=== PATIENT | female | born 1980 | race American Indian/Alaskan Native ===

== ENCOUNTER 2016-04-12 11:39 | Emergency (ER) | payer MEDICAID ==
--- NOTE | 2016-04-12 12:27 | Emergency Department Report ---
Minor Respiratory - HPI Chief Complaint: Upper Respiratory Infection Stated Complaint: CHEST PAIN Time Seen by Provider: 04/12/16 12:21 Duration: 1 Day Pain Location: Chest Severity: moderate Minor Respiratory: Yes Rhinorrhea, Yes Able to Tolerate Fluids, Yes Cough, Yes Sick Contacts, Yes Chest Pain (w/ coughing only), Yes Shortness of Breath ( intermittent w/ coughing), No Sore Throat, No Ear Pain, No Hemoptysis, No Fever Other History: Pt reports onset of cough and congestion yesterday. Reports that when she coughs, her chest hurts. Also reports feeling SOB at times. No current pain and no pain when not coughing. Also c/o chronic issues with RLS. ED Review of Systems ROS: Stated complaint: CHEST PAIN Other details as noted in HPI Comment: All other systems reviewed and negative Constitutional: denies: chills, fever Eyes: denies: eye pain, eye discharge, vision change ENT: congestion. denies: ear pain, throat pain Respiratory: see HPI, cough, shortness of breath. denies: wheezing Cardiovascular: as per HPI, chest pain. denies: palpitations Endocrine: no symptoms reported Gastrointestinal: denies: abdominal pain, nausea, diarrhea Genitourinary: denies: urgency, dysuria, discharge Musculoskeletal: denies: back pain, joint swelling, arthralgia Skin: denies: rash, lesions Neurological: denies: headache, weakness, paresthesias Psychiatric: denies: anxiety, depression Hematological/Lymphatic: denies: easy bleeding, easy bruising ED Past Medical Hx - Past Medical History Hx Psychiatric Treatment: Yes Additional medical history: Depression, bipolar, restless leg syndrome - Surgical History Additional Surgical History: - Social History Smoking Status: Never Smoker Substance Use Type: Alcohol - Medications Home Medications: Home Medications Medication Instructions Recorded Confirmed Last Taken Type Ibuprofen [Motrin 800 MG tab] 800 mg PO Q8HR #30 tablet 10/12/14 Unknown Rx traMADol [Ultram 50 MG tab] 50 mg PO Q6HR PRN #20 tablet 10/12/14 Unknown Rx Benzonatate 200 mg PO Q8H PRN #12 capsule 04/12/16 Unknown Rx Hydroxyzine HCl 25 mg PO HS PRN #12 tablet 04/12/16 Unknown Rx Minor Respiratory Exam - Exam General: Vital signs noted. No distress. Alert and acting appropriately, though anxious. HEENT: Yes Moist Mucous Membranes, Yes Rhinorrhea, No Pharyngeal Erythema, No Pharyngeal Exudates, No Conjuctival Injection, No Frontal Tenderness, No Maxillary Tenderness Ear: Neither TM Bulge, Neither TM Erythema, Neither EAC Pain, Neither EAC Discharge Neck: Yes Supple, No Adenopathy Lungs: Yes Good Air Exchange, No Wheezes, No Ronchi, No Stridor, No Cough, No Labored Respirations, No Retractions, No Use of Accessory Muscles, No Other Abnormal Lung Sounds Heart: Yes Regular, No Murmur Abdomen: Yes Normal Bowel Sounds, No Tenderness, No Peritoneal Signs Skin: No Rash, No Edema Neurologic: Alert and oriented, no deficits. Musculoskeletal: Unremarkable. ED Course Vital Signs 04/12/16 11:49 Temperature 98.4 F Pulse Rate 116 H Respiratory 22 Rate Blood Pressure 146/102 O2 Sat by Pulse 100 Oximetry - Reevaluation(s) Reevaluation #1: 04/12/16 13:43 NAD, stable for d/c. ED Medical Decision Making - Radiology Data Radiology results: report reviewed naf - Medical Decision Making Pt with viral URI, chest wall pain with coughing only. Also is anxious with difficulty sleeping. Will RX hydroxyzine. Follow with PCP - Differential Diagnosis viral URI, PNA, chest wall pain, anxiety Critical care attestation.: If time is entered above; I have spent that time in minutes in the direct care of this critically ill patient, excluding procedure time. ED Disposition Clinical Impression: Viral URI with cough, Anxiety Disposition: DISCHARGED TO HOME OR SELFCARE Is pt being admited?: No Condition: Good Instructions: Cold Symptoms (ED) Prescriptions: Benzonatate 200 mg PO Q8H PRN #12 capsule PRN Reason: Cough Hydroxyzine HCl 25 mg PO HS PRN #12 tablet PRN Reason: Insomnia Referrals: PRIMARY CARE, [Primary Care Provider] - 2-3 Days Time of Disposition: 13:45
--- NOTE | 2016-04-12 12:48 | XRay Report ---
CHEST 2 VIEWS INDICATION: Cough, shortness of breath. COMPARISON: None similar. FINDINGS: PA and lateral chest radiographs demonstrate normal cardiomediastinal silhouette and clear lungs, given the inspiration. Intact bones. CONCLUSION: No acute disease in the chest. Thank you for the opportunity to participate in this patient's care.
[2016-04-12 13:39] VITALS: BP 150/98
== END 2016-04-12 14:10 | disposition home or self-care (01) ==
LOC: ED 11:39
DX: J06.9 Acute upper respiratory infection, unspecified (principal); F41.9 Anxiety disorder, unspecified; F31.9 Bipolar disorder, unspecified
CPT/HCPCS: 71020; 93005; 93010; 99283

== ENCOUNTER 2016-09-23 19:58 | Emergency (ER) | payer MEDICAID, OTHER ==
[2016-09-23 20:30] LABS: Urine Drugs of Abuse Note Disclamer
[2016-09-23 21:13] LABS: Bilirubin,Urine NEG (Negative); Blood,Urine MOD (Negative); Ketones,Urine NEG (Negative); Leukocyte Esterase,Urine NEG (Negative); Mucus,Urine FEW /HPF; Nitrite,Urine NEG (Negative); Urobilinogen,Urine < 2.0 mg/dL (<2.0)
[2016-09-23 21:14] LABS: RBC,Urine > 182.0 /HPF (0.0-6.0)
[2016-09-23 21:26] LABS: Hematocrit 30.9 % (30.3-42.9); Hemoglobin 9.5 gm/dl (10.1-14.3); Mean Corpuscular HGB Conc 31 % (30-34); Mean Corpuscular Volume 70 fl (79-97); Platelet Count 327 K/mm3 (140-440); White Blood Count 4.8 K/mm3 (4.5-11.0)
[2016-09-23 21:30] LABS: Mean Corpuscular Hemoglobin 22 pg (28-32); Red Cell Distribution Width 22.6 % (13.2-15.2)
--- NOTE | 2016-09-23 21:37 | Emergency Department Report ---
ED Psych HPI - General Chief Complaint: Psych Stated Complaint: POSS OVERDOSE Time Seen by Provider: 09/23/16 21:36 Source: patient Mode of arrival: Ambulatory - History of Present Illness Initial Comments: Patient is a 36-year-old female who presents with being brought in by neighbor because of combative behavior and suicidal ideation. History obtained by neighbor. Patient started screaming coworkers and was crying. She has not taken her psychiatric medications for the last couple months she states that she is hearing voices and that "I do not want to be here" patient's neighbor is concerned that she may have taken something other than alcohol. Patient has no headache, no fever, no chills, no nausea or vomiting, no chest pain, no abdominal pain. - Related Data Previous Rx's Medication Instructions Recorded Last Taken Type Ibuprofen [Motrin 800 MG tab] 800 mg PO Q8HR #30 tablet 10/12/14 Unknown Rx traMADol [Ultram 50 MG tab] 50 mg PO Q6HR PRN #20 tablet 10/12/14 Unknown Rx Benzonatate 200 mg PO Q8H PRN #12 capsule 04/12/16 Unknown Rx Hydroxyzine HCl 25 mg PO HS PRN #12 tablet 04/12/16 Unknown Rx Allergies Allergy/AdvReac Type Severity Reaction Status Date / Time No Known Allergies Allergy Unverified 07/12/13 14:13 ED Review of Systems ROS: Stated complaint: POSS OVERDOSE Other details as noted in HPI Comment: Unobtainable due to pts medical conditions (intoxication) Psychiatric: anxiety, depression, visual hallucinations, suicidal thoughts ED Past Medical Hx - Past Medical History Previous Medical History?: Yes Hx Psychiatric Treatment: Yes Additional medical history: Depression, bipolar, restless leg syndrome - Surgical History Past Surgical History?: Yes Additional Surgical History: - Social History Smoking Status: Never Smoker Substance Use Type: Alcohol - Medications Home Medications: Home Medications Medication Instructions Recorded Confirmed Last Taken Type Ibuprofen [Motrin 800 MG tab] 800 mg PO Q8HR #30 tablet 10/12/14 Unknown Rx traMADol [Ultram 50 MG tab] 50 mg PO Q6HR PRN #20 tablet 10/12/14 Unknown Rx Benzonatate 200 mg PO Q8H PRN #12 capsule 04/12/16 Unknown Rx Hydroxyzine HCl 25 mg PO HS PRN #12 tablet 04/12/16 Unknown Rx ED Physical Exam - General Limitations: No Limitations General appearance: anxious, other (tearful) - Head Head exam: Present: atraumatic, normocephalic - Eye Eye exam: Present: normal appearance, PERRL, EOMI - ENT ENT exam: Present: normal exam - Neck Neck exam: Present: normal inspection - Respiratory Respiratory exam: Present: normal lung sounds bilaterally - Cardiovascular Cardiovascular Exam: Present: regular rate - GI/Abdominal GI/Abdominal exam: Present: soft - Extremities Exam Extremities exam: Present: normal inspection, full ROM - Back Exam Back exam: Present: normal inspection - Neurological Exam Neurological exam: Present: alert, other (intoxicated) - Psychiatric Psychiatric exam: Present: agitated, anxious, suicidal ideation, other ( intoxicated) - Skin Skin exam: Present: warm ED Course Vital Signs 09/23/16 20:08 Temperature 98.1 F Pulse Rate 81 Respiratory 18 Rate Blood Pressure 126/85 O2 Sat by Pulse 100 Oximetry - Reevaluation(s) Reevaluation #1: 09/23/16 23:12 Wanted to contact mental health worker and will evaluate patient patient's blood alcohol level is 300. UDS shows no intoxication or substance. ED Medical Decision Making - Lab Data Result diagrams: 09/23/16 20:36 09/23/16 20:36 Laboratory Results - last 24 hr 09/23/16 09/23/16 09/23/16 20:15 20:15 20:36 WBC RBC Hgb Hct MCV MCH MCHC RDW Plt Count Lymph % (Auto) [place] % (Auto) Eos % (Auto) Baso % (Auto) Lymph # [place] # Eos # Baso # Add Manual Diff Total Counted Seg Neutrophils % Seg Neuts % (Manual) Band Neutrophils % Lymphocytes % (Manual) Reactive Lymphs % (Man) Monocytes % (Manual) Eosinophils % (Manual) Basophils % (Manual) Metamyelocytes % Myelocytes % Promyelocytes % Blast Cells % Nucleated RBC % Seg Neutrophils # Seg Neutrophils # Man Band Neutrophils # Lymphocytes # (Manual) Abs React Lymphs (Man) Monocytes # (Manual) Eosinophils # (Manual) Basophils # (Manual) Metamyelocytes # Myelocytes # Promyelocytes # Blast Cells # WBC Morphology Hypersegmented Neuts Hyposegmented Neuts Hypogranular Neuts Smudge Cells Toxic Granulation Toxic Vacuolation Dohle Bodies Pelger-Huet Anomaly Kylie Rods Platelet Estimate Clumped Platelets Plt Clumps, EDTA Large Platelets Giant Platelets Platelet Satelliting Plt Morphology Comment RBC Morphology Dimorphic RBCs Polychromasia Hypochromasia Poikilocytosis Anisocytosis Microcytosis Macrocytosis Spherocytes Pappenheimer Bodies Sickle Cells Target Cells Tear Drop Cells Ovalocytes Helmet Cells [place] Bodies Sarah Ann Rings Kelly Cells Bite Cells Crenated Cell Elliptocytes Acanthocytes (Spur) Rouleaux Hemoglobin C Crystals Schistocytes Malaria parasites Clifford Bodies Hem Pathologist Commnt Sodium 142 Potassium 4.2 Chloride 103.6 Carbon Dioxide 22 Anion Gap 21 BUN 6 L Creatinine 0.7 Estimated GFR > 60 BUN/Creatinine Ratio 8.57 Glucose 83 Calcium 8.8 HCG, Qual Urine Color Red Urine Turbidity Clear Urine pH 6.0 Ur Specific [place] 1.009 Urine Protein 100 mg/dl Urine Glucose (UA) 50 Urine Ketones Neg Urine Blood Mod Urine Nitrite Neg Urine Bilirubin Neg Urine Urobilinogen < 2.0 Ur Leukocyte Esterase Neg Urine WBC (Auto) 28.0 H Urine RBC (Auto) > 182.0 U Epithel Cells (Auto) 5.0 Urine Mucus Few Urine HCG, Qual Urine Opiates Screen Presumptive negative Urine Methadone Screen Presumptive negative Ur Barbiturates Screen Presumptive negative Ur Phencyclidine Scrn Presumptive negative Ur Amphetamines Screen Presumptive negative U Benzodiazepines Scrn Presumptive negative Urine Cocaine Screen Presumptive negative U Marijuana (THC) Screen Presumptive negative Drugs of Abuse Note Disclamer Plasma/Serum Alcohol 09/23/16 09/23/16 09/23/16 20:36 20:36 20:36 WBC 4.8 RBC 4.40 Hgb 9.5 L Hct 30.9 MCV 70 L MCH 22 L MCHC 31 RDW 22.6 H Plt Count 327 Lymph % (Auto) E Commerce Manager [place] % (Auto) E Commerce Manager Eos % (Auto) E Commerce Manager Baso % (Auto) E Commerce Manager Lymph # E Commerce Manager [place] # E Commerce Manager Eos # E Commerce Manager Baso # E Commerce Manager Add Manual Diff Complete Total Counted 100 Seg Neutrophils % E Commerce Manager Seg Neuts % (Manual) 31.0 L Band Neutrophils % 0 Lymphocytes % (Manual) 49.0 H Reactive Lymphs % (Man) 0 Monocytes % (Manual) 5.0 Eosinophils % (Manual) 14.0 H Basophils % (Manual) 1.0 Metamyelocytes % 0 Myelocytes % 0 Promyelocytes % 0 Blast Cells % 0 Nucleated RBC % Not Reportable Seg Neutrophils # E Commerce Manager Seg Neutrophils # Man 1.5 L Band Neutrophils # 0.0 Lymphocytes # (Manual) 2.4 Abs React Lymphs (Man) 0.0 Monocytes # (Manual) 0.2 Eosinophils # (Manual) 0.7 H Basophils # (Manual) 0.0 Metamyelocytes # 0.0 Myelocytes # 0.0 Promyelocytes # 0.0 Blast Cells # 0.0 WBC Morphology Not Reportable Hypersegmented Neuts Not Reportable Hyposegmented Neuts Not Reportable Hypogranular Neuts Not Reportable Smudge Cells Not Reportable Toxic Granulation Not Reportable Toxic Vacuolation Not Reportable Dohle Bodies Not Reportable Pelger-Huet Anomaly Not Reportable Kylie Rods Not Reportable Platelet Estimate Consistent w auto Clumped Platelets Not Reportable Plt Clumps, EDTA Not Reportable Large Platelets 1+ Giant Platelets Not Reportable Platelet Satelliting Not Reportable Plt Morphology Comment Not Reportable RBC Morphology Not Reportable Dimorphic RBCs Not Reportable Polychromasia Not Reportable Hypochromasia 2+ Poikilocytosis 1+ Anisocytosis Not Reportable Microcytosis Not Reportable Macrocytosis Not Reportable Spherocytes Not Reportable Pappenheimer Bodies Not Reportable Sickle Cells Not Reportable Target Cells Rare Tear Drop Cells Not Reportable Ovalocytes Few Helmet Cells Not Reportable [place] Bodies Not Reportable Sarah Ann Rings Not Reportable Urmila Cells Not Reportable Bite Cells Not Reportable Crenated Cell Not Reportable Elliptocytes Not Reportable Acanthocytes (Spur) Not Reportable Rouleaux Not Reportable Hemoglobin C Crystals Not Reportable Schistocytes Not Reportable Malaria parasites Not Reportable Clifford Bodies Not Reportable Hem Pathologist Commnt No Sodium Potassium Chloride Carbon Dioxide Anion Gap BUN Creatinine Estimated GFR BUN/Creatinine Ratio Glucose Calcium HCG, Qual Negative Urine Color Urine Turbidity Urine pH Ur Specific [place] Urine Protein Urine Glucose (UA) Urine Ketones Urine Blood Urine Nitrite Urine Bilirubin Urine Urobilinogen Ur Leukocyte Esterase Urine WBC (Auto) Urine RBC (Auto) U Epithel Cells (Auto) Urine Mucus Urine HCG, Qual Urine Opiates Screen Urine Methadone Screen Ur Barbiturates Screen Ur Phencyclidine Scrn Ur Amphetamines Screen U Benzodiazepines Scrn Urine Cocaine Screen U Marijuana (THC) Screen Drugs of Abuse Note Plasma/Serum Alcohol 0.31 H 09/23/16 20:41 WBC RBC Hgb Hct MCV MCH MCHC RDW Plt Count Lymph % (Auto) [place] % (Auto) Eos % (Auto) Baso % (Auto) Lymph # [place] # Eos # Baso # Add Manual Diff Total Counted Seg Neutrophils % Seg Neuts % (Manual) Band Neutrophils % Lymphocytes % (Manual) Reactive Lymphs % (Man) Monocytes % (Manual) Eosinophils % (Manual) Basophils % (Manual) Metamyelocytes % Myelocytes % Promyelocytes % Blast Cells % Nucleated RBC % Seg Neutrophils # Seg Neutrophils # Man Band Neutrophils # Lymphocytes # (Manual) Abs React Lymphs (Man) Monocytes # (Manual) Eosinophils # (Manual) Basophils # (Manual) Metamyelocytes # Myelocytes # Promyelocytes # Blast Cells # WBC Morphology Hypersegmented Neuts Hyposegmented Neuts Hypogranular Neuts Smudge Cells Toxic Granulation Toxic Vacuolation Dohle Bodies Pelger-Huet Anomaly Kylie Rods Platelet Estimate Clumped Platelets Plt Clumps, EDTA Large Platelets Giant Platelets Platelet Satelliting Plt Morphology Comment RBC Morphology Dimorphic RBCs Polychromasia Hypochromasia Poikilocytosis Anisocytosis Microcytosis Macrocytosis Spherocytes Pappenheimer Bodies Sickle Cells Target Cells Tear Drop Cells Ovalocytes Helmet Cells [place] Bodies Sarah Ann Rings Kelly Cells Bite Cells Crenated Cell Elliptocytes Acanthocytes (Spur) Rouleaux Hemoglobin C Crystals Schistocytes Malaria parasites Clifford Bodies Hem Pathologist Commnt Sodium Potassium Chloride Carbon Dioxide Anion Gap BUN Creatinine Estimated GFR BUN/Creatinine Ratio Glucose Calcium HCG, Qual Urine Color Urine Turbidity Urine pH Ur Specific [place] Urine Protein Urine Glucose (UA) Urine Ketones Urine Blood Urine Nitrite Urine Bilirubin Urine Urobilinogen Ur Leukocyte Esterase Urine WBC (Auto) Urine RBC (Auto) U Epithel Cells (Auto) Urine Mucus Urine HCG, Qual Negative Urine Opiates Screen Urine Methadone Screen Ur Barbiturates Screen Ur Phencyclidine Scrn Ur Amphetamines Screen U Benzodiazepines Scrn Urine Cocaine Screen U Marijuana (THC) Screen Drugs of Abuse Note Plasma/Serum Alcohol - Medical Decision Making Chief medical diagnosis: Substance induced mood disorder, Differential medical diagnosis: Psychosis, drug withdrawal, major depressive disorder, bipolar We'll get CBC, urine drug screen, urinalysis, CMP and psychiatric evaluation. Critical care attestation.: If time is entered above; I have spent that time in minutes in the direct care of this critically ill patient, excluding procedure time. ED Disposition Clinical Impression: Substance induced mood disorder, Suicidal ideation Alcohol intoxication Qualifiers: Complication of substance-induced condition: with unspecified complication Qualified Code(s): F10.929 - Alcohol use, unspecified with intoxication, unspecified Disposition: [id number] PSY HOSP/PSY UNIT Is pt being admited?: No Does the pt Need Aspirin: No Condition: Stable Referrals: PRIMARY CARE, [Primary Care Provider] - 3-5 Days Time of Disposition: 00:09
[2016-09-23 21:47] LABS: Anion Gap 21 mmol/L; BUN/Creatinine Ratio 8.57; Blood Urea Nitrogen 6 mg/dL (7-17); Calcium 8.8 mg/dL (8.4-10.2); Carbon Dioxide 22 mmol/L (22-30); Chloride 103.6 mmol/L (98-107); Glucose 83 mg/dL (65-100); Potassium 4.2 mmol/L (3.6-5.0); Sodium 142 mmol/L (137-145)
[2016-09-23 22:11] LABS: Blastocytes % (Manual) 0 %; Hypochromasia 2+; Large Platelets 1+
[2016-09-23 22:12] LABS: Diff Status Complete; Ovalocytes Few; Platelet Estimate Consistent w Auto; Poikilocytosis 1+; Target Cells Rare
[2016-09-24] MEDS ORDERED: ALUM-MAG HYDROX-SIMETH 200-200-20MG/5ML PO PRN (00:07)
[2016-09-24] MEDS ORDERED: TYLENOL PO PRN (00:07)
--- NOTE | 2016-09-24 13:27 | Consultation ---
History of Present Illness - Reason for Consult Consult date: 09/24/16 Reason for consult: Mental Health Evaluation Requesting physician: IVIS ACEVEDO - Chief Complaint Chief complaint: "I need sleep" - History of Present Psychiatric Illness Patient is a 36-year-old female who presents with being brought in by neighbor because of combative behavior and suicidal ideation. Today patient is cooperative, but anxious with a circumstantial thought process. She stated that she have not gotten sleep in weeks. She stated that she want to sleep, but can' t. She stated that she hear voices telling her negative things about herself that she try to block out even when she isn't drinking alcohol. Patient admit to increased alcohol intake to help her sleep. She stated her last drink was yesterday (Vodka). She stated that she started drinking alcohol 10 years ago. She stated that she drink 4/7 days a week. She stated that she has a psychiatrist, but have not had an appointment (outpatient) in months nor taken her medications. Patient cannot tell me the name of the medication she taken in the past. She stated being off medication for months. She stated that she know something isn't right with her "mind." She stated that she have thought about suicide, but denies SI's currently. She admit that being around people is an issue for her, she stated, "I don't feel safe around them." During my conversation with the patient, she would look off, stare, and pause between answers, possibly responding to some type of stimuli. She denies HI's, VH's and a poor appetite. She denies recreational drug use. Medications and Allergies Allergies Allergy/AdvReac Type Severity Reaction Status Date / Time No Known Allergies Allergy Unverified 07/12/13 14:13 Home Medications Medication Instructions Recorded Confirmed Last Taken Type Ibuprofen [Motrin 800 MG tab] 800 mg PO Q8HR #30 tablet 10/12/14 09/24/16 Unknown Rx traMADol [Ultram 50 MG tab] 50 mg PO Q6HR PRN #20 tablet 10/12/14 09/24/16 Unknown Rx Benzonatate 200 mg PO Q8H PRN #12 capsule 04/12/16 09/24/16 Unknown Rx Hydroxyzine HCl 25 mg PO HS PRN #12 tablet 04/12/16 09/24/16 Unknown Rx Active Meds: Active Medications Acetaminophen (Tylenol) 650 mg PO Q4HR PRN PRN Reason: Pain MILD(1-3)/Fever >100.5/MA Last Admin: 09/24/16 04:28 Dose: 650 mg Al Hydrox/Mg Hydrox/Simethicone (Alum-Mag Hydrox-Simeth [id number]/5ml) 30 ml PO Q4HR PRN PRN Reason: Indigestion Past psychiatric history - Past Medical History Past Medical History: other (RLS) Past Surgical History: No surgical history - past Psychiatric treatment and history Psych: Schizophrenia psychiatric treatment history: [place] inpatient in the past. Denies a fam psy hx. - Social History Social history: Lives alone (HS graduate with some college) Mental Status Exam - Vital signs Last Vital Signs Temp 98.5 F 09/24/16 09:48 Pulse 67 09/24/16 09:48 Resp 18 09/24/16 09:48 BP 129/89 09/24/16 09:48 Pulse Ox 100 09/24/16 09:48 - Exam Narrative exam: ROS: (+) psychosis MSE: Appearance: cooperative, anxious Behavior: regular eye contact Speech: regular rate and tone Mood: "i have no idea how I feel" Affect: labile Thought Process: circumstantial Thought Content: denies SI/HI's and VH's, paranoid Motor Activity: ambulatory Cognition: A/Ox 3 Insight: limited Judgment: limited Results Result Diagrams: 09/23/16 20:36 09/23/16 20:36 Abnormal lab results 09/23/16 09/23/16 09/23/16 Range/Units 20:15 20:36 20:36 Hgb (10.1-14.3) gm/dl MCV (79-97) fl MCH (28-32) pg RDW (13.2-15.2) % Seg Neuts % (Manual) (40.0-70.0) % Lymphocytes % (Manual) (13.4-35.0) % Eosinophils % (Manual) (0.0-4.3) % Seg Neutrophils # Man (1.8-7.7) K/mm3 Eosinophils # (Manual) (0.0-0.4) K/mm3 BUN 6 L (7-17) mg/dL Urine WBC (Auto) 28.0 H (0.0-6.0) /HPF Plasma/Serum Alcohol 0.31 H (0-0.07) gm% // Range/Units 20:36 Hgb 9.5 L (10.1-14.3) gm/dl MCV 70 L (79-97) fl MCH 22 L (28-32) pg RDW 22.6 H (13.2-15.2) % Seg Neuts % (Manual) 31.0 L (40.0-70.0) % Lymphocytes % (Manual) 49.0 H (13.4-35.0) % Eosinophils % (Manual) 14.0 H (0.0-4.3) % Seg Neutrophils # Man 1.5 L (1.8-7.7) K/mm3 Eosinophils # (Manual) 0.7 H (0.0-0.4) K/mm3 BUN (7-17) mg/dL Urine WBC (Auto) (0.0-6.0) /HPF Plasma/Serum Alcohol (0-0.07) gm% All other labs normal. Assessment and Plan Assessment and plan: Impression: Historical Dx: Schizophrenia Paranoid Type. Alcohol Use DO. Today patient is cooperative, but anxious with a circumstantial thought process. Responding to some type of stimuli. Alcohol serum 0.31. DDx: Schizaffective DO, R/O Mood DO, Substance Induced Mood DO Recommendation/Plan: Continue 1013 with placement to inpatient psy services. Start Seroquel 200 mg PO HS for psychotic symptoms/mood and Vistaril 25 mg PO Q6hrs PRN for anxiety. Discussed possible metabolic side effects of Seroquel with patient.
[2016-09-24] MEDS ORDERED: VISTARIL PO PRN (14:00)
--- NOTE | 2016-09-25 13:24 | Progress Note ---
Subjective - Reason for Consult Consult date: 09/25/16 Reason for consult: Psychiatry Follow-up - Chief Complaint Chief complaint: "I am so rested" Patient is a 36-year-old female who presents with being brought in by neighbor because of combative behavior and suicidal ideation. Today patient is calm and cooperative during assessment. She stated that she rested well last night (9 hours of sleep). She denies feeling like someone is out to get her. She isn't responding to internal/external stimuli today. She denies SI/HI's and AVH's. She denies any side effects of her medications. Mental Status Exam - Vital signs Last Vital Signs Temp 97.9 F 09/25/16 09:18 Pulse 94 H 09/25/16 09:18 Resp 16 09/25/16 09:18 BP 124/86 09/25/16 09:18 Pulse Ox 99 09/25/16 09:18 - Exam Narrative exam: MSE: Appearance: calm, cooperative Behavior: regular eye contact Speech: regular rate and tone Mood: "better today" Affect: congruent to mood Thought Process: linear Thought Content: denies SI/HI's and AVH's Motor Activity: ambulatory Cognition: A/Ox 3 Insight: fair Judgment: fair Assessment and Plan Impression: Historical Dx: Schizophrenia Paranoid Type. Alcohol Use DO. Today patient is calm and cooperative. She denies AH's. Recommendation/Plan: Evaluate 1013 in 24 hours to determine proper dispo. Continue Seroquel 200 mg PO HS for psychotic symptoms/mood and Vistaril 25 mg PO Q6hrs PRN for anxiety. Discussed possible metabolic side effects of Seroquel with patient.
[2016-09-26 08:05] VITALS: BP 129/92
--- NOTE | 2016-09-26 08:44 | Progress Note ---
Subjective - Reason for Consult Consult date: 09/26/16 Reason for consult: Psychiatry Follow-up - Chief Complaint Chief complaint: "I feel much better" Patient is a 36-year-old female who presents with being brought in by neighbor because of combative behavior and suicidal ideation. Today patient is calm and cooperative during assessment. She stated no voices the last 48 hours. She denies all perceptional disturbances. She denies SI/HI's and depression symptoms. Per the staff, no behavioral disturbances noted since her admission. She denies any side effects of her medications. Mental Status Exam - Vital signs Last Vital Signs Temp 98.1 F 09/26/16 08:03 Pulse 71 09/26/16 08:03 Resp 18 09/26/16 08:03 BP 129/92 09/26/16 08:03 Pulse Ox 100 09/26/16 08:03 - Exam Narrative exam: MSE: Appearance: calm, cooperative Behavior: regular eye contact Speech: regular rate and tone Mood: "well" Affect: congruent to mood Thought Process: linear Thought Content: denies SI/HI's and AVH's Motor Activity: ambulatory Cognition: A/Ox 3 Insight: fair Judgment: fair Assessment and Plan Impression: Historical Dx: Schizophrenia Paranoid Type. Alcohol Use DO. Today patient is calm and cooperative. She denies AH's. Patient is no threat to self. Recommendation/Plan: Rescind 1013. Continue Seroquel 200 mg PO HS for psychotic symptoms/mood and Vistaril 25 mg PO Q6hrs PRN for anxiety. Discussed possible metabolic side effects of Seroquel with patient. Recommended patient follow-up with [facility] for outpatient psy services to apply for [facility] [employer] [facility]). Patient resides in [facility]). Also, patient was given outpatient psy services for the [facility].
== END 2016-09-26 19:15 ==
LOC: EEVIPCON 19:58 → ED 19:58
DX: F39 Unspecified mood [affective] disorder (principal); R45.851 Suicidal ideations; F10.929 Alcohol use, unspecified with intoxication, unspecified; F31.9 Bipolar disorder, unspecified; F32.9 Major depressive disorder, single episode, unspecified; G25.81 Restless legs syndrome
CPT/HCPCS: 36415; 80048; 80307; 81001; 81025; 84703; 85007; 85025; 99285; G0480; 80320

== ENCOUNTER 2016-10-11 15:30 | Emergency (ER) | payer SELFPAY ==
[2016-10-11 16:05] VITALS: BP 131/86
[2016-10-11 16:17] LABS: Urine Drugs of Abuse Note Disclamer
[2016-10-11 16:33] LABS: Basophils % (Auto) 1.1 % (0.0-1.8); Eosinophils % (Auto) 8.6 % (0.0-4.3); Hematocrit 31.3 % (30.3-42.9); Hemoglobin 9.5 gm/dl (10.1-14.3); Mean Corpuscular HGB Conc 30 % (30-34); Platelet Count 486 K/mm3 (140-440); Red Blood Count 4.55 M/mm3 (3.65-5.03); White Blood Count 9.7 K/mm3 (4.5-11.0)
[2016-10-11 16:43] LABS: Bilirubin,Urine NEG (Negative); Blood,Urine NEG (Negative); Ketones,Urine NEG (Negative); Leukocyte Esterase,Urine NEG (Negative); Nitrite,Urine NEG (Negative); Protein,Urine <15 mg/dL mg/dL (Negative); Urobilinogen,Urine < 2.0 mg/dL (<2.0)
[2016-10-11 16:46] LABS: Mean Corpuscular Hemoglobin 21 pg (28-32); Mean Corpuscular Volume 69 fl (79-97); Red Cell Distribution Width 22.2 % (13.2-15.2)
[2016-10-11 16:47] LABS: Anion Gap 27 mmol/L; BUN/Creatinine Ratio 13.33; Blood Urea Nitrogen 8 mg/dL (7-17); Calcium 9.1 mg/dL (8.4-10.2); Carbon Dioxide 18 mmol/L (22-30); Chloride 99.3 mmol/L (98-107); Glucose 77 mg/dL (65-100); Sodium 140 mmol/L (137-145)
--- NOTE | 2016-10-11 16:47 | Emergency Department Report ---
ED Alcohol HPI - General Chief Complaint: Alcohol Stated Complaint: INTOXICATED Time Seen by Provider: 10/11/16 16:42 Source: patient, EMS Mode of arrival: Ambulatory Limitations: Other - History of Present Illness MD Complaint: alcohol intoxication Last Drink: just [employer] Chronic Alcohol Use: Yes Previous Visits for Alcohol Intoxication?: Yes Recent Trauma: No Associated Symptoms: denies: nausea, vomiting, syncope, seizure, diaphoresis, tremors, abdominal pain, hematemesis, melena, depression, suicidality Treatments Prior to Arrival: none - Related Data Previous Rx's Medication Instructions Recorded Last Taken Type traMADol [Ultram 50 MG tab] 50 mg PO Q6HR PRN #20 tablet 10/12/14 Unknown Rx Benzonatate 200 mg PO Q8H PRN #12 capsule 09/26/16 Unknown Rx Hydroxyzine HCl 25 mg PO HS PRN #12 tablet 09/26/16 Unknown Rx Ibuprofen [Motrin 800 MG tab] 800 mg PO Q8HR #30 tablet 09/26/16 Unknown Rx Quetiapine Fumarate [Seroquel] 100 mg PO HS #30 tablet 09/26/16 Unknown Rx Thiamine [Vitamin B-1] 100 mg PO QDAY #30 tablet 10/11/16 Unknown Rx Allergies Allergy/AdvReac Type Severity Reaction Status Date / Time No Known Allergies Allergy Unverified 07/12/13 14:13 ED Review of Systems ROS: Stated complaint: INTOXICATED Other details as noted in HPI Comment: All other systems reviewed and negative ED Past Medical Hx - Past Medical History Previous Medical History?: Yes Hx Psychiatric Treatment: Yes (ETOH) Additional medical history: Depression, bipolar, restless leg syndrome - Surgical History Additional Surgical History: - Social History Smoking Status: Never Smoker Substance Use Type: Alcohol, Prescribed - Medications Home Medications: Home Medications Medication Instructions Recorded Confirmed Last Taken Type traMADol [Ultram 50 MG tab] 50 mg PO Q6HR PRN #20 tablet 10/12/14 09/24/16 Unknown Rx Benzonatate 200 mg PO Q8H PRN #12 capsule 09/26/16 Unknown Rx Hydroxyzine HCl 25 mg PO HS PRN #12 tablet 09/26/16 Unknown Rx Ibuprofen [Motrin 800 MG tab] 800 mg PO Q8HR #30 tablet 09/26/16 Unknown Rx Quetiapine Fumarate [Seroquel] 100 mg PO HS #30 tablet 09/26/16 Unknown Rx Thiamine [Vitamin B-1] 100 mg PO QDAY #30 tablet 10/11/16 Unknown Rx ED Physical Exam - General Limitations: Other General appearance: alert, in no apparent distress - Head Head exam: Present: atraumatic, normocephalic - Eye Eye exam: Present: normal appearance, EOMI - ENT ENT exam: Present: normal exam, normal orophraynx, mucous membranes moist - Neck Neck exam: Present: normal inspection - Respiratory Respiratory exam: Present: normal lung sounds bilaterally. Absent: respiratory distress - Cardiovascular Cardiovascular Exam: Present: regular rate, normal rhythm. Absent: systolic murmur, diastolic murmur, rubs, gallop - GI/Abdominal GI/Abdominal exam: Present: soft, normal bowel sounds - Extremities Exam Extremities exam: Present: normal inspection - Back Exam Back exam: Present: normal inspection - Neurological Exam Neurological exam: Present: alert, oriented X3 - Psychiatric Psychiatric exam: Present: normal affect, normal mood - Skin Skin exam: Present: warm, dry, intact, normal color. Absent: rash ED Course Vital Signs 10/11/16 15:53 Temperature 98.5 F Pulse Rate 96 H Respiratory 18 Rate Blood Pressure 131/86 O2 Sat by Pulse 100 Oximetry ED Medical Decision Making - Lab Data Result diagrams: 10/11/16 16:12 - Medical Decision Making patien been doing well, no complaints at this time , wanting to go home,. will dc and follow up once her sister picks her up Critical care attestation.: If time is entered above; I have spent that time in minutes in the direct care of this critically ill patient, excluding procedure time. ED Disposition Clinical Impression: ETOH abuse Disposition: DC-01 TO HOME OR SELFCARE Is pt being admited?: No Does the pt Need Aspirin: No Condition: Good Prescriptions: Thiamine [Vitamin B-1] 100 mg PO QDAY #30 tablet Referrals: PRIMARY CARE, [Primary Care Provider] - 3-5 Days Time of Disposition: 16:47
== END 2016-10-11 22:01 | disposition home or self-care (01) ==
LOC: EEVIPCON 15:30 → ED 15:30
DX: F10.129 Alcohol abuse with intoxication, unspecified (principal); F31.9 Bipolar disorder, unspecified
CPT/HCPCS: 36415; 80048; 80307; 81001; 84703; 85025; 99284; G0480; 80320